=== PATIENT | female | born 1985 | race Caucasian/White ===

== ENCOUNTER 2020-06-19 14:00 | Outpatient (RCR) | payer SELFPAY ==
[2020-06-19 14:37] LABS: Basophils Percent Auto 0.2 % (0.2-1.2); Eosinophils Absolute Auto 0.1 K/mm3 (0-0.3); Eosinophils Percent Auto 0.8 % (0-4.4); Hematocrit 38.5 % (37.0-47.0); Immature Granulocyte Absolute 0.02 K/mm3 (0.00-0.031); Immature Granulocyte Percent A 0.2 % (0-0.5); Lymphocytes Absolute Auto 1.75 K/mm3 (0.9-3.2); Lymphocytes Percent Auto 18.1 % (18.3-44.2); Mean Corpuscular HGB Conc 33.8 g/dl (32-36); Mean Corpuscular Hemoglobin 28.6 pg (26-34); Mean Corpuscular Volume 84.8 fl (80-100); Mean Platelet Volume 11.2 fl (7.4-10.4); Monocytes Absolute Auto 0.6 K/mm3 (0.1-0.6); Neutrophils Absolute Auto 7.2 K/mm3 (1.3-6.7); Neutrophils Percent Auto 74.7 % (45.5-73.1); Platelet Count Result 235 k/mm3 (150-375); Red Blood Count 4.54 M/mm3 (4.2-5.4); Red Cell Distribution Width 12.7 % (11.5-14.5); White Blood Count 9.7 K/mm3 (4.5-10.0)
[2020-06-19 15:30] LABS: HIV 1/2 Ab P24 Ag Result Negative (Negative)
[2020-06-19 16:11] LABS: Hepatitis B Surface Antigen Negative (Negative); Rubella IgG Antibody 10.8 IU/ML
[2020-06-19 16:26] LABS: Hepatitis C Virus Antibody Negative (Negative)
[2020-06-22 09:13] LABS: Rapid Plasma Reagin Non-Reactive (NonReactive)
[2020-06-22] MEDS: RHO(D) IMMUNE GLOBULIN 300 MCG SYRINGE IM (17:53)
== END 2020-09-17 23:59 | disposition home or self-care (01) ==
LOC: ANHLAB 14:00
PROVIDERS: PCP Family Medicine; Visit Provider Obstetrics & Gynecology
DX: Z11.4 Encounter for screening for human immunodeficiency virus [HIV] (principal); Z29.13 Encounter for prophylactic Rho(D) immune globulin; O36.0190 Maternal care for anti-D [Rh] antibodies, unspecified trimester, not applicable or unspecified; Z3A.00 Weeks of gestation of pregnancy not specified
CPT/HCPCS: 36415; 83036; 85025; 85461; 86592; 86703; 86762; 86803; 87340; 90384; 96372; G0432; J2790

== ENCOUNTER 2020-10-27 13:28 | Outpatient (RCR) | payer BC, SELFPAY ==
[2020-10-27 14:03] LABS: Hematocrit 31.6 % (37.0-47.0); Hemoglobin 10.4 g/dL (12.0-15.0)
[2020-10-27 14:54] LABS: HIV 1/2 Ab P24 Ag Result Negative (Negative)
[2020-10-28 09:37] LABS: Rapid Plasma Reagin Non-Reactive (NonReactive)
[2020-10-29] MEDS: RHO(D) IMMUNE GLOBULIN 300 MCG/2 ML SYRINGE IM (12:20)
== END 2021-01-25 23:59 | disposition home or self-care (01) ==
LOC: ANHLAB 13:28
PROVIDERS: PCP Family Medicine; Visit Provider Obstetrics & Gynecology
DX: Z11.4 Encounter for screening for human immunodeficiency virus [HIV] (principal); Z29.13 Encounter for prophylactic Rho(D) immune globulin; O36.0190 Maternal care for anti-D [Rh] antibodies, unspecified trimester, not applicable or unspecified; Z3A.00 Weeks of gestation of pregnancy not specified
CPT/HCPCS: 36415; 85014; 85018; 85461; 86592; 86703; 90384; 96372; G0432; J2790

== ENCOUNTER 2020-12-22 13:57 | Outpatient (RCR) | payer BC, SELFPAY ==
[2020-12-04 16:05] VITALS: BP 99/71; PULSE 117
[2020-12-12 14:35] VITALS: BP 105/60; PULSE 95
[2020-12-20 12:14] VITALS: BP 123/71; PULSE 109
== END 2020-12-24 12:28 | disposition home or self-care (01) ==
LOC: ANHOBOP 13:57
PROVIDERS: PCP Family Medicine; Visit Provider Obstetrics & Gynecology
DX: O30.003 Twin pregnancy, unspecified number of placenta and unspecified number of amniotic sacs, third trimester (principal); Z3A.35 35 weeks gestation of pregnancy; Z3A.36 36 weeks gestation of pregnancy; Z3A.37 37 weeks gestation of pregnancy; O24.419 Gestational diabetes mellitus in pregnancy, unspecified control; Z3A.38 38 weeks gestation of pregnancy
CPT/HCPCS: 59025

== ENCOUNTER 2020-12-24 07:21 | Inpatient (IN) | payer BC, SELFPAY ==
[2020-12-24] VITALS (63 sets, daily range): BP systolic 92–128; BP diastolic 42–81; PULSE 66–111; RESP 15–18; TEMP 36.1–36.8; O2SAT 97–100; BMI 37.3
--- OUTSIDE RECORDS SUMMARY | 2020-12-24 07:26 | XMS_ITS ---
:1985 Author Care Team Providers Name Role Phone SerinaRobertSamchris Vega Primary Care Provider Unavailable Allergies Code Code System Name Reaction Severity Status Onset NKDA ? Medications Name Status Start Date Stop Date ? ? albuterol 90 mcg/actuation aerosol inhaler Active 04/05 Not available 2 inhalations 4 times a day by inhalation route. albuterol sulfate HFA 90 Completed ? 021 mcg/actuation aerosol inhaler amoxicillin 500 mg tablet Completed ? 2019 TK 1 T PO TID amoxicillin 875 mg-potassium Completed ? 02/2020 clavulanate 125 mg tablet FreeStyle Lancets 28 gauge Active ? Not a vailable FreeStyle Lite Meter kit Active ? Not león ilable FreeStyle Lite Strips Active ? Not availa ble hydroxyzine HCl 25 mg tablet Completed ? 02/2020 TK 1 T PO QHS Metamucil Active ? Not available metronidazole 500 mg tablet Completed ? 08/14 montelukast Completed ? 12/01/2020 montelukast 10 mg tablet Active ? Not león ilable Take 1 tablet every day by oral route. prednisone 20 mg tablet Completed ? 04/23/20 20 TK 2 TS PO QD FOR 7 DAYS One Daily 27 mg iron-800 mcg tablet Active ? Not available take 1 tablet by oral route every day Sprintec (28) 0.25 mg-35 mcg Completed 04/14/201901/2021 tablet terconazole 0.8 % vaginal Completed ? 2020
--- OUTSIDE RECORDS SUMMARY | 2020-12-24 07:27 | XMS_ITS | Encounter Summary ---
:1985 Author Reason for Visit OB visit Assessment and Plan Assessment Note Patient is ___weeks . Discu ssed plan. 1. Routine care Discussion Note: None recorded.Patient educational handouts: No information available. Plan of Care Reminders Provider Appointments Surg Post 12/30/2020 Citlali Vega Op 1:15PM MD Serina ? 3Hr on or around Jasmyn There se Glucose 02/16/2021 MD [facility] None ? ? recorded. Referral None ? ? recorded. Procedures None ? ? recorded. Surgeries None ? ? recorded. Imaging None ? ? recorded. Medications Name Start Date ? ? albuterol 90 mcg/actuation aerosol inhaler 04/05/2020 2 inhalations 4 times a day by inhalation route. FreeStyle Lancets 28 gauge ? FreeStyle Lite Meter kit ? FreeStyle Lite Strips ? Metamucil ? montelukast 10 mg tablet ? Take 1 tablet every day by oral route. One Daily 27 mg iron-800 mcg tablet ? take 1 tablet by oral route every day Medications Administered None recorded. Vitals Height Weight BMI Blood Pressure 5 ft 4 in 227 lbs 39 kg/m2 130/84 mm[Hg] Results Lab Results None recorded. Allergies
--- OUTSIDE RECORDS SUMMARY | 2020-12-24 07:27 | XMS_ITS | Encounter Summary ---
:1985 Author Reason for Visit None recorded. Assessment and Plan 1. Gestational diabetes mellitus , class A>1< ? non-stress test Discussion Note: None recorded.Patient educational handouts: No information available. Plan of Care Reminders Provider Appointments Surg Post 12/30/2020 Citlali Vega Op 1:15PM MD Serina ? 3Hr on or around Jasmyn There se Glucose 02/16/2021 MD [facility] None ? ? recorded. Referral None ? ? recorded. Procedures None ? ? recorded. Surgeries None ? ? recorded. Imaging Non-stress 12/08/2020 Uyen lentz Test Medications Name Start Date ? ? albuterol [...] every day Medications Administered None recorded. Vitals None recorded. Results Lab Results None recorded. Allergies Code Code System Name Reaction Severity Onset NKDA ? ?
--- OUTSIDE RECORDS SUMMARY | 2020-12-24 07:27 | XMS_ITS | Encounter Summary ---
:1985 Author Reason for Visit None recorded. Assessment and Plan 1. Gestational diabetes mellitus , class A>1< ? US, obstetric, follow-up ? US, obstetric, follow-up Discussion Note: None recorded.Patient educational handouts: No information available. Plan of Care Reminders Provider Appointments Surg Post 12/30/2020 Citlali Vega Op 1:15PM MD Serina ? 3Hr on or around Jasmyn There se Glucose 02/16/2021 MD [facility] None ? ? recorded. Referral None ? ? recorded. Procedures None ? ? recorded. Surgeries None ? ? recorded. Imaging US, 12/08/2020 [facility], Follow-up ? US, 12/08/2020 [facility], Follow-up Medications Name Start Date ? ? albuterol [...]
--- OUTSIDE RECORDS SUMMARY | 2020-12-24 07:27 | XMS_ITS | Encounter Summary ---
:1985 Author Reason for Visit None recorded. Assessment and Plan 1. Gestational diabetes mellitus , class A>1< Pt here for diet teaching. t teaching completed. Carb counts for meals and snacks reviewed. Pt instructed on ho w to read nutritional labels and instructed on researching carb counts for fresh fru its and vegetables. Pt provided with print outs with some fresh food carb counts an d online resources reinforced for checking fresh food serving sizes and carb counts . Pt instructed on blood sugar level goals and importance of checking blood sugar a nd keeping blood sugar log. Pt instructed on high protein low carb and provided with food recommendations. Pt instructed on 2200 calorie ADA diet and importance of regul ar meals and snacks with controlled carb amounts for a senior care stable control o f blood sugar. Pt has an appt scheduled for next week to review her BS log. Pt rolly toney understanding of information discussed. Shanti Ely RN ? non-stress test Discussion Note: None recorded.Patient educational handouts: No information available. Plan of Care Reminders Provider Appointments Surg Post 12/30/2020 Citlali Vega Op 1:15PM MD Serina ? 3Hr on or around Jasmyn There se Glucose 02/16/2021 MD [facility] None ? ? recorded. Referral None ? ? recorded. Procedures None ? ? recorded. Surgeries None ? ? recorded. Imaging Non-stress 11/24/2020 Uyen lentz
--- OUTSIDE RECORDS SUMMARY | 2020-12-24 07:27 | XMS_ITS | Encounter Summary ---
:1985 Author Reason for Visit OB visit OB [id number] EDC 01/05/2021 LMP unsure Assessment and Plan Assessment Note Patient is _34__weeks . Dis cussed plan. 1. Routine care 2. Twin 3. Seasonal allergic rhinitis ? montelukast 10 mg tablet Discussion Note: None recorded.Patient educational handouts: No [...]
--- OUTSIDE RECORDS SUMMARY | 2020-12-24 07:27 | XMS_ITS | Encounter Summary ---
[...] Surgeries None ? ? recorded. Imaging Non-stress 12/01/2020 [facility] Test Medications Name Start Date [...]
--- OUTSIDE RECORDS SUMMARY | 2020-12-24 07:27 | XMS_ITS | Encounter Summary ---
[...] snacks with controlled carb amounts for a ch[facility] stable control o f blood sugar. Pt [...] Surgeries None ? ? recorded. Imaging Non-stress 11/20/2020 Uyen lentz
--- OUTSIDE RECORDS SUMMARY | 2020-12-24 07:27 | XMS_ITS | Encounter Summary ---
:1985 Author Reason for Visit OB visit Assessment and Plan 1. Dichorionic diamniotic twin p regnancy Discussion Note: None recorded.Patient educational handouts: No [...] BMI Blood Pressure 5 ft 4 in 218 lbs 37.4 kg/m2 121/78 mm[Hg] Results Lab Results None recorded. Allergies Code Code System Name Reaction Severity Onset
--- OUTSIDE RECORDS SUMMARY | 2020-12-24 07:27 | XMS_ITS | Encounter Summary ---
[...] snacks with controlled carb amounts for a fdc stable control o f blood sugar. Pt [...] Surgeries None ? ? recorded. Imaging Non-stress 11/27/2020 Uyen lentz
--- OUTSIDE RECORDS SUMMARY | 2020-12-24 07:27 | XMS_ITS | Encounter Summary ---
:1985 Author Reason for Visit None recorded. Assessment and Plan 1. condition affecting obs tetrical care of mother ? US, obstetric, biophysical profile + non-stress test Discussion Note: None recorded.Patient educational handouts: No information available. Plan of Care Reminders Provider Appointments Surg Post Op 12/30/2020 Ro omar Vega 1:15PM MD Serina ? 3Hr Glucose on or around Jasmyn Jeannette 02/16/2021 MD [facility] None ? ? recorded. Referral None ? ? recorded. Procedures None ? ? recorded. Surgeries None ? ? recorded. Imaging US, 11/24/2020 [facility], Biophysical Profile + Non-stress Test Medications Name Start Date ? ? [...] recorded. Results Lab Results None recorded. Allergies C
--- OUTSIDE RECORDS SUMMARY | 2020-12-24 07:27 | XMS_ITS | Encounter Summary ---
:1985 Author Reason for Visit None recorded. Assessment and Plan 1. Abnormal heart rate ? US, obstetric, biophysical profile + non-stress test Discussion Note: None recorded.Patient educational handouts: No information available. Plan of Care Reminders Provider Appointments Surg Post Op 12/30/2020 Afia Vega 1:15PM MD Serina ? 3Hr Glucose on or around Jasmyn Jeannette 02/16/2021 [facility] None ? ? recorded. Referral None ? ? recorded. Procedures None ? ? recorded. Surgeries None ? ? recorded. Imaging US, 11/20/2020 [facility], Biophysical Profile + Non-stress Test Medications [...]
--- OUTSIDE RECORDS SUMMARY | 2020-12-24 07:27 | XMS_ITS | Encounter Summary ---
[...] BMI Blood Pressure 5 ft 4 in 217 lbs 37.2 kg/m2 113/80 mm[Hg] Results Lab Results None recorded. Allergies Code Code System Name Reaction Severity Onset
--- OUTSIDE RECORDS SUMMARY | 2020-12-24 07:28 | XMS_ITS | Encounter Summary ---
:1985 Author Reason for Visit OB visit OB [id number] EDC 01/05/2021 LMP unsure Assessment and Plan 1. Routine care 2. section following pr evious section ? section (SURG) Discussion Note: None recorded.Patient educational handouts: No information available. Plan of Care Reminders Provider Appointments Surg Post 12/30/2020 Citlali Vega Op 1:15PM MD Serina ? 3Hr Glucose on or around Jasmyn Jeannette 02/16/2021 [facility] None ? ? recorded. Referral None ? ? recorded. Procedures None ? ? recorded. Surgeries 11/17/2020 [facility] (SURG) [facility] None ? ? recorded. Medications Name [...]
--- OUTSIDE RECORDS SUMMARY | 2020-12-24 07:28 | XMS_ITS ---
:1985 Author Care Team Providers Name Role Phone [facility] Primary Care Provider Unavailable Allergies None recorded. Medications None recorded. Problems None recorded. Procedures None recorded. Results Lab Results Date Name Specimen Result Interpretation Description Value Range Status Address ? 03/04/2020 SARS CoV 2 RNA CRITICAL Sars - positive* ? [facility] (COVID-19), ABNORMAL Cov - 2 mL Re gional QL, nurse leader-PCR, PCR (Lab ): [address], [place] ? ? ? Covidc ? ? [facility] (Lab): [address], [place] ? ? ? Covidc ? ? [facility] (Lab): [address], [place] ? ? ? Covidc ? ? [facility] (Lab): [address], [place] ? ? ? Covidc ? ? [facility] (Lab): [address],
--- OUTSIDE RECORDS SUMMARY | 2020-12-24 07:28 | XMS_ITS | Encounter Summary ---
[...] snacks with controlled carb amounts for a care home stable control o f blood sugar. Pt [...] Surgeries None ? ? recorded. Imaging Non-stress 11/13/2020 Uy[facility] lentz
--- OUTSIDE RECORDS SUMMARY | 2020-12-24 07:28 | XMS_ITS | Encounter Summary ---
[...] snacks with controlled carb amounts for a intermediate stable control o f blood sugar. Pt [...] Surgeries None ? ? recorded. Imaging Non-stress 11/10/2020 Uyen lentz
--- OUTSIDE RECORDS SUMMARY | 2020-12-24 07:28 | XMS_ITS | Encounter Summary ---
:1985 Author Reason for Visit OB visit 28weeks Assessment and Plan 1. Twin 2. Routine care Discussion Note: None recorded.Patient educational [...] BMI Blood Pressure 5 ft 4 in 219 lbs 37.6 kg/m2 113/76 mm[Hg] Results Lab Results None recorded. Allergies Code Code System Name
--- OUTSIDE RECORDS SUMMARY | 2020-12-24 07:28 | XMS_ITS | Encounter Summary ---
[...] ft 4 in 218 lbs 37.4 kg/m2 112/75 mm[Hg] Results Lab Results None recorded. Allergies Code Code System Name Reaction Severity Onset
--- OUTSIDE RECORDS SUMMARY | 2020-12-24 07:28 | XMS_ITS | Encounter Summary ---
[...] snacks with controlled carb amounts for a nursing home stable control o f blood sugar. [...] Surgeries None ? ? recorded. Imaging Non-stress 11/17/2020 Uyen lentz
--- OUTSIDE RECORDS SUMMARY | 2020-12-24 07:28 | XMS_ITS | Encounter Summary ---
[...] with controlled carb amounts for a senior living stable control o f blood sugar. Pt has an appt scheduled for next week to review her BS log. Pt rolly toney understanding of information discussed. Shanti Ely RN Discussion Note: None recorded.Patient educational handouts: No [...]
--- OUTSIDE RECORDS SUMMARY | 2020-12-24 07:28 | XMS_ITS | Encounter Summary ---
:1985 Author Reason for Visit OB visit 32wks Assessment and Plan 1. Routine care Discussion Note: None recorded.Patient [...] ft 4 in 218 lbs 37.4 kg/m2 133/82 mm[Hg] Results Lab Results None recorded. Allergies Code Code System Name Reaction Severity Onset
--- OUTSIDE RECORDS SUMMARY | 2020-12-24 07:28 | XMS_ITS | Encounter Summary ---
:1985 Author Reason for Visit None recorded. Assessment and Plan 1. Dichorionic diamniotic twin p regnancy ? US, obstetric, follow-up ? US, obstetric, [...] Surgeries None ? ? recorded. Imaging US, 10/13/2020 [facility], Follow-up ? , 10/13/2020 [facility], Follow-up Medications Name Start Date ? [...] Medications Administered None recorded. Vitals None recorded. Re
--- OUTSIDE RECORDS SUMMARY | 2020-12-24 07:28 | XMS_ITS | Encounter Summary ---
[...] Surgeries None ? ? recorded. Imaging US, 11/10/2020 [facility], Follow-up ? , 11/10/2020 [facility], Follow-up Medications Name Start Date ? [...]
[2020-12-24 07:55] LABS: Glucose Point of Care 59 mg/dl (65-105)
[2020-12-24] MEDS: LACTATED RINGERS 1,000 ML 125 ML IV CONT ×2 (08:00→11:08)
[2020-12-24 08:12] LABS: Basophils Absolute Auto 0.1 K/mm3 (0.0-0.1); Basophils Percent Auto 0.5 % (0.2-1.2); Eosinophils Absolute Auto 0.1 K/mm3 (0-0.3); Eosinophils Percent Auto 1.2 % (0-4.4); Hematocrit 33.6 % (37.0-47.0); Immature Granulocyte Absolute 0.06 K/mm3 (0.00-0.031); Immature Granulocyte Percent A 0.6 % (0-0.5); Lymphocytes Absolute Auto 1.89 K/mm3 (0.9-3.2); Lymphocytes Percent Auto 18.5 % (18.3-44.2); Mean Corpuscular HGB Conc 32.7 g/dl (32-36); Mean Corpuscular Volume 82.6 fl (80-100); Monocytes Absolute Auto 0.8 K/mm3 (0.1-0.6); Monocytes Percent Auto 7.5 % (2.6-8.5); Neutrophils Absolute Auto 7.3 K/mm3 (1.3-6.7); Neutrophils Percent Auto 71.7 % (45.5-73.1); Platelet Count Result 162 k/mm3 (150-375); Red Blood Count 4.07 M/mm3 (4.2-5.4); White Blood Count 10.2 K/mm3 (4.5-10.0)
--- NOTE | 2020-12-24 08:18 | LDADM ---
This patient, Iraida Cooley, was admitted to Labor/Delivery/Recovery 120 on 12/24/20 at 07:21. Plans for scheduled section, pain management and were discussed with patient. Patient/family oriented to hospital policies and general routines including ID bracelet, bed and alarms, visiting hours, pain management, procedures, bathroom and other care routines, personal items, smoking policy, room service/diet and guest tray routines, infant security routines, and visiting hours. Patient/Family are encouraged to report perceived risks to care and to ask questions if they do not understand what they are told or what they should do. See OBIX for further documentation.
--- NOTE | 2020-12-24 08:38 | WPDANESEPPF ---
Anes - Initial Pre Proc Eval Procedure: Operation Date: 12/24/20 09:00 Proposed Procedures p Repeat Section - Raghu Smalls MD Date/Time: 12/24/20 08:38 Surgeon: Raghu Smalls MD Pre Op Diagnosis: c/s twins Patient Data Age: 35 Gender: F Height: 1.63 m Weight: 98.63 kg Last Vital Signs Pulse 111 H 12/24/20 07:47 BP 128/77 12/24/20 07:47 Allergies Allergy/AdvReac Type Severity Reaction Status Date / Time No Known Allergies Allergy Unverified 07/15/14 13:40 Laboratory Tests 12/24/20 12/24/20 12/24/20 07:53 07:56 07:56 WBC 10.2 K/mm3 H K/mm3 (4.5-10.0) RBC 4.07 M/mm3 L M/mm3 (4.2-5.4) Hgb 11.0 g/dL L g/dL (12.0-15.0) Hct 33.6 % L % (37.0-47.0) MCV 82.6 fl fl (80-100) MCH 27.0 pg pg (26-34) MCHC 32.7 g/dl g/dl (32-36) RDW 14.0 % % (11.5-14.5) Plt Count 162 k/mm3 k/mm3 (150-375) MPV 12.0 fl H fl (7.4-10.4) Immature Gran % (Auto) 0.6 % H % (0-0.5) Neut % (Auto) 71.7 % % (45.5-73.1) Lymph % (Auto) 18.5 % % (18.3-44.2) Amelia % (Auto) 7.5 % % (2.6-8.5) Eos % (Auto) 1.2 % % (0-4.4) Baso % (Auto) 0.5 % % (0.2-1.2) Lymph # (Auto) 1.89 K/mm3 K/mm3 (0.9-3.2) Amelia # (Auto) 0.8 K/mm3 H K/mm3 (0.1-0.6) Eos # (Auto) 0.1 K/mm3 K/mm3 (0-0.3) Baso # (Auto) 0.1 K/mm3 K/mm3 (0.0-0.1) Abs Immat Gran (auto) 0.06 K/mm3 H K/mm3 (0.00-0.031) Absolute Neuts (auto) 7.3 K/mm3 H K/mm3 (1.3-6.7) Absolute Nucleated RBC 0.0 K/mm3 K/mm3 (0.0-0.012) Nucleated RBC % 0.0 % % (0.0-0.2) POC Capillary Glucose 59 mg/dl L* mg/dl (65-105) RPR Pending Patient hx anesthesia problems: none Family hx anesthesia problems: none PMFSH Social History Social History Smoking status: Never smoker Substance use: never Sexual Orientation (if Verbalized by the Patient): Straight or Heterosexual Spiritual care concerns: No Anes - Eval Final PreProcedure Day of Procedure 12/24/20 08:38 Patient weight: obese Heart: regular rate and rhythm Lungs: clear to auscultation Airway: Mallampati scale class II Neurological: alert and oriented Last oral intake: >/= 8 hours ASA classification: II Emergent: no Anesthetic plan: proceed Anesthesia type and monitoring: regional spinal and standard monitoring Informed Consent: The patient's anesthetic plan and its attendant risks and benefits were discussed with the patient/family/POA. Questions were solicited and answers provided to the satisfaction of the patient/family/POA.
--- NOTE | 2020-12-24 08:58 | PM.IMHP ---
H&P: HPI History of Present Illness Date/Time: 12/24/20 08:58 this patient is a 35-year-old 2 para 1001 at 38 weeks gestation with dichorionic diamniotic twins. We have agreed to proceed with delivery. She understands the risks and understands that injuries may occur. She understands these injuries may result in hospitalization, more surgery, and severe illness. She understands risk of hemorrhage infection. She denies any chest pain or shortness of breath. She denies any nausea, vomiting, fever, chills. She denies any contractions, loss of fluid or vaginal bleeding. Chief Complaint: Term gestation with twins Review of Systems Constitutional: Constitutional: Reports no additional constitutional complaints, Denies fatigue, Denies headache(s), Denies lethargy and Denies weakness Eyes: Eyes: Reports no additional eye complaints, Denies blurry vision and Denies photophobia ENT: Reports as per HPI, Denies headache(s) and Denies neck pain Cardiovascular: Cardiovascular: Denies chest pain, Denies diaphoresis, Denies leg edema, Denies palpitations and Denies dyspnea Respiratory: Respiratory: Denies hemoptysis, Denies dyspnea and Denies wheezing Gastrointestinal: Gastrointestinal: Denies abdominal pain, Denies melena, Denies bloating, Denies hematochezia, Denies nausea and Denies vomiting Genitourinary: Genitourinary: Reports no additional female genitourinary complaints Musculoskeletal: Musculoskeletal: Denies joint swelling, Denies neck pain, Denies numbness and Denies stiffness Neurologic: Denies Abnormal speech present, Denies confusion, Denies headache(s), Denies numbness and Denies weakness Psychiatric: Psychiatric: Denies anxiety, Denies confusion, Denies depression, Denies homicidal ideation and Denies suicidal ideation Endocrine: Endocrine: Denies fatigue and Denies palpitations Allergic/Immunologic: Allergic/Immunologic: Denies wheezing PMFSH Social History Social History Smoking status: Never smoker Substance use: never Sexual Orientation (if Verbalized by the Patient): Straight or Heterosexual Spiritual care concerns: No Meds Home Medications and Allergies Allergies Allergy/AdvReac Type Severity Reaction Status Date / Time No Known Allergies Allergy Unverified 07/15/14 13:40 Vital Signs Vital Signs - 24 hr 12/24/20 07:47 Pulse Rate 111 H Blood Pressure 128/77 Exam Const: General: healthy appearing, comfortable and no acute distress; No confusion Orientation/consciousness: No confusion Eyes: Direct Ophthalmoscopy: No photophobia Resp: Auscultation: clear to auscultation bilaterally, no rales, no rhonchi and no wheezes Cardio: Rate: regular rate Heart sounds: no click, no murmurs and no rubs GI: Inspection: non-distended GI Palp: No abdominal tenderness Auscultation: normal bowel sounds Neuro: General: No confusion Speech: No Abnormal speech present Extrem: General: normal to inspection, no pedal edema and no calf tenderness H&P: Results Labs Labs: Short CBC 12/24/20 Range/Units 07:56 WBC 10.2 H (4.5-10.0) K/mm3 Hgb 11.0 L (12.0-15.0) g/dL Hct 33.6 L (37.0-47.0) % Plt Count 162 (150-375) k/mm3 Assessment and Plan Assessment and plan (1) Twin gestation in third trimester: Code(s): O30.003 - Twin , unspecified number of placenta and unspecified number of amniotic sacs, third trimester Status: Acute Additional Plan this patient is a 35-year-old 2 para 1001 at 38 weeks gestation with a twin gestation. We have agreed to perform delivery. She understands risks, benefits, and alternatives. She has completed the informed consent process and is ready to proceed.
--- NOTE | 2020-12-24 10:23 | W.PM.PROC2 ---
Procedure Note - Detailed Date of Procedure 12/24/20 Pre-op Diagnosis c/s twins Post-op Diagnosis same Procedure Performed Low-transverse section of Twins Surgeon Raghu Smalls MD Anesthesia spinal Indications twin gestation Findings Normal gestational maternal anatomy, average size for gestational age and twins, normal Apgars. Description of Procedure The patient was taken the operating room. She was prepped and draped in dorsal supine position with a leftward tilt. This was done after spinal anesthetic was applied. A low-transverse skin incision was made and carried down till of the fascia with the knife. The fascial incision was made with the knife. The fascial incision was extended laterally with [place] scissors. The fascia was tented upward superiorly and inferiorly the rectus muscles were dissected off bluntly. The rectus muscles were the midline. The preperitoneal fat and peritoneum were dissected open bluntly at the superior aspect of the rectus muscles. The peritoneal incision was extended superior and inferior with good position of bladder. The uterine incision was made with a scalpel down to the level of the amniotic cavity. The amniotic cavity was entered bluntly. The infant A was delivered in the vertex position.Infant B was delivered breech, first the left leg and the right was then reduced. the rest came easily. The cord was clamped and cut and the infants were handed off to waiting pediatric staff. Cord bloods were obtained. The placenta was removed manually. The uterus was exteriorized. The uterus was cleared of all clots, debris and membranes. The uterus was closed in 0 Vicryl running lock fashion. An imbricating over a was placed along the incision line as well. The uterus was returned to the abdomen. The gutters were cleared of all clots and debris. The fascia was closed with 0 Vicryl running fashion. The subcutaneous tissue was irrigated pinpoint bleeders were cauterized. The skin was closed with subcuticular absorbable mohsen. The skin incision line was covered with glue. The patient tolerated the procedure well. She has taken recovery room in stable condition. Sponge lap and needle counts were correct x2. Estimated Blood Loss 230 Drains No Packing No Pathology yes Complications No immediate complications Condition stable Disposition PACU
[2020-12-24 10:35] LABS: Glucose Point of Care 89 mg/dl (65-105)
[2020-12-24] MEDS: OXYTOCIN 30 UNITS/NS 500 ML 30 UNITS/500 ML BAG 125 UNITS IV CONT (11:09)
--- NOTE | 2020-12-24 13:30 | PC.NURSE ---
Patient transferred to post room #292 per stretcher from labor and delivery. Support person present. Oriented to unit, room, information board, rooming in, admission packet and security measures. Patient verbalizes understanding.
[2020-12-24] MEDS: diphenhydrAMINE HCl INJ 50 MG/ML VIAL 25 MG IV PUSH (13:48)
--- NOTE | 2020-12-24 13:50 | PC.NURSE ---
Mother called out for assist with feeding. Mother reports infant eagerly fed last feeding. Other twin is currently in Level II. is able to freely thrust tongue past gum ridge and flange both lips. Skin is intact on both nipples, no redness and bruising noted. Discussed both infants will have their own abilities: suck and feeding patterns that may not match. Some mothers prefer to breastfeed separately to give each infant her full individualized attention during to assist with effective latching. Keeping infants on a feeding schedule may be difficult, but it is suggested to feed infants in sequence to allow rest time for mother between feedings. Different approaches to switching infants to breast by feeding or day. Reviewed feeding cues, frequencies, duration of feedings, feeding elimination flow sheet, and signs of adequate intake. Demonstrated stimulation techniques to wake for feeding. Assisted with infant to breast. Reviewed positioning/alignment in cross cradle, holding breast in ?U? hold and guided asymmetrical latch on. Discussed rational for each. able to latch correctly. Reviewed signs of a correct latch, effective nursing and suck swallow ratio. nursed eagerly, with steady draws and frequent swallowing noted. Reviewed the difference of effective vs ineffective nursing. Suggested mother stimulate while feeding to increase stimulation, increase intake and to assist with maintaining deep latch. would slip to shallow latch. Demonstrated how to adjust latch more deeply while feeding. Nipple care reviewed of lanolin after feedings, warm compresses as needed. Mother preferred cradle and switched once was latched.
[2020-12-24] MEDS: DEXTROSE 5%/0.45% SOD CHL 1,000 ML 125 ML IV CONT (16:40)
[2020-12-24] MEDS: SIMETHICONE 80 MG TAB.CHEW PO (22:57)
[2020-12-24] MEDS: HYDROcodone/acetaminophen (*CRX) 5-325 MG TABLET 1 TAB PO (22:58)
[2020-12-24] MEDS: IBUPROFEN 600 MG TABLET PO (22:58)
--- NOTE | 2020-12-25 01:10 | PC.NURSE ---
To Level II Nursery per wheelchair to see .
--- NOTE | 2020-12-25 02:30 | PC.NURSE ---
Returned to room 292 per wheelchair. Ambulatory in room, up to bathroom. Gait steady.
[2020-12-25 03:45] VITALS: BP 112/63; PULSE 81; RESP 18; TEMP 37.1
[2020-12-25] MEDS: TETANUS,DIPHTHERIA,AC PERTUSSIS ADULT (0.5 ML) BOOSTRIX IM (03:59)
[2020-12-25] MEDS: LANOLIN (LANSINOH) 7.5 GM CREAM 1 APPLIC TOPICAL (04:04)
[2020-12-25] MEDS: HYDROcodone/acetaminophen (*CRX) 5-325 MG TABLET 1 TAB PO ×6 (05:02→23:51)
[2020-12-25] MEDS: IBUPROFEN 600 MG TABLET PO ×3 (05:03→19:51)
[2020-12-25 05:19] LABS: Basophils Percent Auto 0.3 % (0.2-1.2); Eosinophils Absolute Auto 0.1 K/mm3 (0-0.3); Eosinophils Percent Auto 0.8 % (0-4.4); Hematocrit 31.6 % (37.0-47.0); Hemoglobin 10.3 g/dL (12.0-15.0); Immature Granulocyte Absolute 0.06 K/mm3 (0.00-0.031); Immature Granulocyte Percent A 0.5 % (0-0.5); Lymphocytes Absolute Auto 1.65 K/mm3 (0.9-3.2); Lymphocytes Percent Auto 12.7 % (18.3-44.2); Mean Corpuscular HGB Conc 32.6 g/dl (32-36); Mean Corpuscular Volume 82.7 fl (80-100); Mean Platelet Volume 12.6 fl (7.4-10.4); Monocytes Absolute Auto 0.9 K/mm3 (0.1-0.6); Monocytes Percent Auto 7.1 % (2.6-8.5); Neutrophils Absolute Auto 10.2 K/mm3 (1.3-6.7); Neutrophils Percent Auto 78.6 % (45.5-73.1); Platelet Count Result 148 k/mm3 (150-375); Red Blood Count 3.82 M/mm3 (4.2-5.4); Red Cell Distribution Width 13.9 % (11.5-14.5)
[2020-12-25 07:30] VITALS: BP 89/49; PULSE 78; RESP 18; TEMP 37.2; O2SAT 98
--- NOTE | 2020-12-25 08:38 | P.PNOB_ITS ---
OB - PN: Subj Subjective Date/time seen: 12/25/20 08:38 Patient comments: no complaints baby status: doing well OB - PN: Obj Data Labs CBC & Chem 7: 12/25/20 03:56 Labs: Laboratory Results - last 24 hr 12/24/20 12/24/20 12/25/20 07:56 10:33 03:56 WBC RBC Hgb Hct MCV MCH MCHC RDW Plt Count MPV Immature Gran % (Auto) Neut % (Auto) Lymph % (Auto) Grimes % (Auto) Eos % (Auto) Baso % (Auto) Lymph # (Auto) [place]imes # (Auto) Eos # (Auto) Baso # (Auto) Abs Immat Gran (auto) Absolute Neuts (auto) Absolute Nucleated RBC Nucleated RBC % POC Capillary Glucose 89 Blood Type A Negative A Negative Antibody Screen Negative Negative 12/25/20 03:56 WBC 13.0 H RBC 3.82 L Hgb 10.3 L Hct 31.6 L MCV 82.7 MCH 27.0 MCHC 32.6 RDW 13.9 Plt Count 148 L MPV 12.6 H Immature Gran % (Auto) 0.5 Neut % (Auto) 78.6 H Lymph % (Auto) 12.7 L Grimes % (Auto) 7.1 Eos % (Auto) 0.8 Baso % (Auto) 0.3 Lymph # (Auto) 1.65 Grimes # (Auto) 0.9 H Eos # (Auto) 0.1 Baso # (Auto) 0.0 Abs Immat Gran (auto) 0.06 H Absolute Neuts (auto) 10.2 H Absolute Nucleated RBC 0.0 Nucleated RBC % 0.0 POC Capillary Glucose Blood Type Antibody Screen OB - PN A/P Plan day: 1 Plan: routine care Time Spent With Patient Time: Total time spent is greater than 50% in coordination of care (as documented) at patient's floor/unit and/or counseling patient: Review of Systems Review of Systems: All systems reviewed & are unremarkable except as noted in HPI and below Exam Narrative: CDI Const: General: cooperative Psych: Affect: normal affect Thought process: Normal thought process present Insight: Good insight present (Psych)
[2020-12-25 09:00] VITALS: PULSE 78; RESP 18; O2SAT 98
[2020-12-25] MEDS: MULTIVIT/MIN/PREN/FOL AC/IRON TABLET 1 TAB PO (09:30)
[2020-12-25] MEDS: DOCUSATE SODIUM 100 MG CAPSULE PO ×2 (09:30→17:17)
[2020-12-25 13:13] LABS: Rapid Plasma Reagin Non-Reactive (NonReactive)
[2020-12-25] MEDS: SIMETHICONE 80 MG TAB.CHEW PO ×3 (13:36→23:51)
--- NOTE | 2020-12-25 15:19 | WPDANLDNPN2 ---
Anes-Prog Note L&D-Neuraxial Date/Time: 12/25/20 15:19 Neuraxial medications: intrathecal PF morphine Opiod-related complaints: none Patient feedback: Patient satisfied with post-operative pain management.
--- NOTE | 2020-12-25 15:20 | WPDANLDPN2 ---
Anes-Prog Note L&D Date/Time: 12/25/20 15:20 Comfortable throughout: section Neuraxial method: spinal Epidural/Spinal procedure site: clean & non-tender Neuro status: Neuro function grossly intact. Cardiovascular status: normal Respiratory status: normal Airway patency: baseline Mental status: baseline Post-Op hydration status: normal Vital Signs: Last Vital Signs Temp 37.2 C 12/25/20 07:30 Pulse 78 12/25/20 07:30 Resp 18 12/25/20 07:30 BP 89/49 L 12/25/20 07:30 Pulse Ox 98 12/25/20 07:30 Pain score (VAS): 05/24 I/O: Intake & Output 12/24/20 12/25/20 12/25/20 23:59 07:59 15:59 Intake Total 1920 1800 240 Output Total 600 2200 Balance 1320 -400 240 Post-procedural complaints: none Patient feedback: Patient satisfied with anesthetic care.
[2020-12-25] MEDS: RHO(D) IMMUNE GLOBULIN 300 MCG/2 ML SYRINGE IM (17:43)
[2020-12-25 19:28] VITALS: BP 102/61; PULSE 81; RESP 16; TEMP 36.4; O2SAT 98
[2020-12-26] MEDS: SIMETHICONE 80 MG TAB.CHEW PO ×3 (05:58→19:03)
[2020-12-26] MEDS: IBUPROFEN 600 MG TABLET PO ×2 (05:58→16:30)
[2020-12-26] MEDS: HYDROcodone/acetaminophen (*CRX) 5-325 MG TABLET 1 TAB PO ×4 (05:58→19:03)
[2020-12-26 07:00] VITALS: BP 111/63; PULSE 81; RESP 16; TEMP 36.6; O2SAT 98
--- NOTE | 2020-12-26 08:42 | PM.OBPNVD ---
OB - PN: Subj Subjective Date/time seen: 12/26/20 08:42 Patient comments: no complaints and pain well controlled baby status: bottle feeding well Narrative: Eating, ambulating, voiding. No concerns. OB - PN: Obj Data Labs CBC & Chem 7: 12/25/20 03:56 Labs: Laboratory Results - last 24 hr 12/24/20 12/25/20 07:56 03:56 RPR Non-reactive Blood Type A Negative Antibody Screen Negative Screen Negative Baby's Blood Type O pos Baby's GURINDER Negative Doses of RhIg Required 1 OB - PN A/P Plan day: 2 Comments: Routine post op care. Time Spent With Patient Time: Total time spent is greater than 50% in coordination of care (as documented) at patient's floor/unit and/or counseling patient: Exam Narrative: NAD abdomen soft, appropriately tender, incision CDI Extremities nontender with 1+ edema
[2020-12-26 09:00] VITALS: PULSE 81; RESP 16; O2SAT 98
[2020-12-26] MEDS: MULTIVIT/MIN/PREN/FOL AC/IRON TABLET 1 TAB PO (09:29)
[2020-12-26] MEDS: DOCUSATE SODIUM 100 MG CAPSULE PO ×2 (09:29→16:30)
[2020-12-26 19:00] VITALS: BP 124/80; PULSE 76; RESP 16; TEMP 36.7; O2SAT 99
[2020-12-27] MEDS: IBUPROFEN 600 MG TABLET PO ×2 (01:48→08:08)
[2020-12-27] MEDS: SIMETHICONE 80 MG TAB.CHEW PO ×2 (01:49→08:08)
[2020-12-27] MEDS: HYDROcodone/acetaminophen (*CRX) 5-325 MG TABLET 1 TAB PO ×2 (01:49→08:09)
[2020-12-27] MEDS: DOCUSATE SODIUM 100 MG CAPSULE PO (08:08)
[2020-12-27] MEDS: MULTIVIT/MIN/PREN/FOL AC/IRON TABLET 1 TAB PO (08:08)
[2020-12-27 08:15] VITALS: BP 133/72; PULSE 91; RESP 16; TEMP 36.3; O2SAT 100
--- NOTE | 2020-12-27 08:32 | PC.NURSE ---
Patient viewed the discharge video Mother & Baby Care, The First Two Weeks . Patient was given the opportunity and encouraged to ask questions. Patient verbalized understanding of information shared and has been given the mother/baby guide for home reference.
--- NOTE | 2020-12-27 08:49 | PM.OBPNVD ---
OB - PN: Subj Subjective Date/time seen: 12/27/20 08:49 Patient comments: no complaints and pain well controlled baby status: doing well and bottle feeding well OB - PN: Obj Data Labs CBC & Chem 7: 12/25/20 03:56 OB - PN A/P Plan day: 3 Plan: routine care and discharge home Time Spent With Patient Time: Total time spent is greater than 50% in coordination of care (as documented) at patient's floor/unit and/or counseling patient: Exam Narrative: NAD abdomen soft, appropriately tender, incision CDI Extremities nontender with 1+ edema
--- NOTE | 2020-12-27 08:55 | P.DS_ITS ---
DS: Admitting Diagnosis Admitting Diagnosis twin IUP at term DS: Discharge Diagnosis Discharge Diagnosis (1) delivery delivered: Code(s): O82 - Encounter for delivery without indication Status: Acute (2) Twin gestation in third trimester: Code(s): O30.003 - Twin , unspecified number of placenta and unspecified number of amniotic sacs, third trimester Status: Acute OB - DS: Summary OB Procedures : NST and Ultrasound OB Procedures Intrapartum: OB Procedures: : None Peripartum Data Delivery Method: Section Procedures: Procedures Operation Date: 12/24/20 09:00 Actual Procedure Side Surgeon p Repeat Section Raghu Smalls MD complications: none Status at Discharge Functional status at discharge: independent ambulation Time Spent with Patient Time attestation: Total time spent providing and/or coordinating discharge ser vices: Time spent: Less than 30 minutes Exam Narrative: NAD abdomen soft, appropriately tender, incision CDI DS: Data Data Completed and Pending Pending studies at discharge: Pending at discharge 12/24/20 10:51 Surgical [PTH] Routine Discharge Plan Discharge Attending physician on discharge: Jasmyn Gallegos Discharging Clinician: Jasmyn Gallegos Anticipated Discharge Date/Time: 12/27/20 12:00 Patient Disposition: Home, Self-Care Activity: may shower, may drive after 2 weeks and pelvic rest Diet: as tolerated Patient Instructions: Antibiotic Form Stand Alone Forms: General Discharge Information Follow-up/Referrals: Raghu Smalls MD [Physician] - 1 Week Discharge Medications: New hydrocodone-acetaminophen 5-325 mg tablet 1 tablet PO Q4-6H PRN (Reason: Moderate Pain (4-6)) Qty: 30 RF: 0 ibuprofen 600 mg Tablet 600 mg PO Q6H PRN (Reason: Cramping) Qty: 60 RF: 1 docusate sodium 100 mg Capsule 100 mg PO BID Qty: 60 RF: 1 Continued montelukast 10 mg tablet See Rx Instructions .ROUTE .COMPLEX RF: 0 Date of admission: 12/24/20 07:21 Primary Care Provider: Elizabeth Pinzon Admitting Provider: Raghu Smalls Attending physician on admission: Raghu Smalls Condition: Stable
[2020-12-30 11:55] VITALS: BP 133/76; PULSE 73; RESP 20; TEMP 37.1; O2SAT 99
== END 2020-12-27 13:25 | disposition home or self-care (01) | DRG 788 ==
LOC: ANHOB2 12-27 08:55 → ANHLDR 12-28 15:44 → ANHOB2 12-28 15:44
PROVIDERS: Admitting Provider Obstetrics & Gynecology; PCP Family Medicine; Visit Provider Obstetrics & Gynecology
PROC: 10D00Z1 Extraction of Products of Conception, Low, Open Approach (ICD-10-PCS; CPT 59514; principal; 2020-12-24 09:00)
DX: O30.043 Twin pregnancy, dichorionic/diamniotic, third trimester (principal); Z37.2 Twins, both liveborn; Z3A.38 38 weeks gestation of pregnancy; O34.211 Maternal care for low transverse scar from previous cesarean delivery; O32.1XX2 Maternal care for breech presentation, fetus 2; O24.429 Gestational diabetes mellitus in childbirth, unspecified control; O99.214 Obesity complicating childbirth; E66.9 Obesity, unspecified
CPT/HCPCS: 36415; 59025; 82948; 85025; 85461; 86592; 86850; 86900; 86901; 88307; 90384; 90715; A9270; J0131; J1200; J2274; J2590; J2790; J7120

== ENCOUNTER 2022-07-18 14:55 | Emergency (ER) | payer SELFPAY ==
[2022-07-18 15:03] VITALS: BP 124/79; PULSE 80; RESP 16; TEMP 36.7; O2SAT 100
--- NOTE | 2022-07-18 15:46 | ED_ITS ---
HPI - Skin/Abscess/Foreign Bdy General Chief complaint: Upper Respiratory Infection Stated complaint: sore throat Time Seen by Provider: 07/18/22 15:40 Source: patient, RN notes reviewed and old records reviewed Mode of arrival: ambulatory Limitations: no limitations Related Data Home Medications Medication Instructions Recorded Confirmed montelukast 10 mg tablet See Rx Instructions .Route .COMPLEX 12/24/20 12/24/20 Allergies Allergy/AdvReac Type Severity Reaction Status Date / Time No Known Allergies Allergy Unverified 03/26/21 09:17 PMFSH Surgical History Surgical History [place] teeth extracted Social History Social History Smoking status: Never smoker Substance use: never Sexual Orientation (if Verbalized by the Patient): Straight or Heterosexual Spiritual care concerns: No Course Vital Signs Vital signs: Vital Signs Temperature 36.7 C 07/18/22 15:03 Pulse Rate 80 07/18/22 15:03 Respiratory Rate 16 07/18/22 15:03 Blood Pressure 124/79 07/18/22 15:03 Pulse Oximetry 100 07/18/22 15:03 Oxygen Delivery Room Air 07/18/22 15:03 Temperature 36.7 C 07/18/22 15:03 Pulse Rate 80 07/18/22 15:03 Respiratory Rate 16 07/18/22 15:03 Blood Pressure 124/79 07/18/22 15:03 Pulse Oximetry 100 07/18/22 15:03 Oxygen Delivery Room Air 07/18/22 15:03 MDM - Skin/Abscess/Foreign Bdy Lab Data Labs: Strep Screen Presumptive Negative *(Reference Range: Negative)* Discharge Plan Discharge Clinical Impression: Upper respiratory infection Qualifiers: URI type: unspecified URI Qualified Code(s): J06.9 - Acute upper respiratory infection, unspecified Patient Disposition: Home, Self-Care Condition: Stable Instructions: Antibiotic Form Additional Instructions: Increase fluids especially juices and water Fzcu-nod-tsinifl cough and cold medicine of your choice for your symptoms Zyrtec Claritin or Samantha daily heat to the face 20-30 minutes 4-6 times a day for pain Salt water gargles, throat lozenges or throat sprays as desired Tylenol or ibuprofen for any fever pain Your strep test today was negative. A throat culture will be sent to the laboratory for further testing. IF the test is positive, you will receive a phone call within 48 hours and an appropriate antibiotic will be initiated at that time. Prescriptions: No Action montelukast 10 mg tablet See Rx Instructions .ROUTE .COMPLEX Rx Instructions: take once a day docusate sodium 100 mg Capsule 100 mg PO BID Qty: 60 1RF hydrocodone-acetaminophen 5-325 mg tablet 1 tablet PO Q4-6H PRN (Reason: Moderate Pain (4-6)) Qty: 30 0RF ibuprofen 600 mg Tablet 600 mg PO Q6H PRN (Reason: Cramping) Qty: 60 1RF Follow-up/Referrals: UNKNOWN,DOCTOR [Primary Care Provider] -
--- NOTE | 2022-07-18 15:48 | ED.URI ---
HPI - URI/Sore Throat General Chief Complaint: Upper Respiratory Infection Stated Complaint: sore throat Time Seen by Provider: 07/18/22 15:40 Source: patient, RN notes reviewed and old records reviewed Mode of arrival: ambulatory Limitations: no limitations History of Present Illness HPI Narrative: 36 year old female with complaints of 16 days of sore throat stating that initially it was very sore felt like needles in her throat, then has been mildly persistent. Patient reports that she recently quit taking Montelukast about a month ago states she started that when she had COVID and had just stayed on it for awhile. Patient reports no history of allergies, reports that post nasal drainage noted which has increased with weather changes. Patient reported that she has not had COVID vaccinations or flu shot, denies any body aches, headaches, fever, chills or sweats MD elicited complaint: sore throat and other (post nasal drainage) Onset (ago): week(s) (2 weeks) Pain scale (0-10): 2 Description of mucous: clear Treatments prior to arrival: none Related Data Home Medications Medication Instructions Recorded Confirmed No Home Medications 07/18/22 07/18/22 Allergies Allergy/AdvReac Type Severity Reaction Status Date / Time No Known Allergies Allergy Unverified 07/18/22 18:53 Review of Systems Review of Systems: CONSTITUTIONAL: Denies malaise, chills, sweats, or fever. EYES: Denies visual changes, redness, or discharge. ENT: Reports rhinorrhea, congestion,no sinus pain,no otalgia positive for lingering sore throat. CARDIOVASCULAR: Denies chest pain, palpitations, or edema. RESPIRATORY: Reports no cough.? Denies dyspnea. GASTROINTESTINAL: Denies abdominal pain, nausea, vomiting, diarrhea SKIN: Denies rash or itching. MUSCULOSKELETAL: Denies myalgia. NEUROLOGIC: Denies headache. All systems reviewed & are unremarkable except as noted in HPI and below PMFSH Surgical History Surgical History (Updated 07/19/22 @ 14:53 by Umm Lucas NP) Previous section [place] teeth extracted Family History Family History Other No problems noted. Mother Brain cancer Social History Social History (Updated 07/19/22 @ 14:53 by Umm Lucas NP) Smoking status: Never smoker Alcohol intake: unknown Substance use: never Living arrangements: with family Gender identity (if verbalized by the patient): Female Sexual Orientation (if Verbalized by the Patient): Straight or Heterosexual Spiritual care concerns: No Comments At time of signature, agree with nursing past medical, surgical, social and family history. There is no relevant family history pertinent to the presenting complaint Exam Narrative: GENERAL: Well-appearing, well-nourished, and in no acute distress. HEAD: Normocephalic EYES: PERRLA, conjunctivae clear ENT: Nares clear, turbinates edematous and erythematous, clear discharge. Mucous membranes moist. TM pearly chan with dull light reflex bilaterally; no tragal tenderness. Oropharynx erythematous without lesions. Tonsils not enlarged and without exudate, no drooling, no hoarseness, no trismus, uvula midline. NECK: Supple. No lymphadenopathy CHEST: Clear to auscultation, breath sounds equal. No wheezing, rhonchi, rales, or stridor. No respiratory distress, speaks in full sentences.SAO2 100% on room air HEART: Regular rate and rhythm. No murmur heard. SKIN: Warm, dry, no rash. NEURO: Alert and oriented x3. PSYCH: Normal mood and affect Course Course Emergency Course: Patient is aware of diagnosis, understands and agrees to treatment plan.? Anticipatory guidance given.? Patient agrees to follow-up as directed and is aware of reasons to seek care at the emergency department. Portions of this record may have been created with voice recognition software Level of Care: Express Care Visit Vital Signs
== END 2022-07-18 16:19 | disposition home or self-care (01) ==
PROVIDERS: Emergency Provider Registered Nurse
DX: J02.9 Acute pharyngitis, unspecified (principal)
CPT/HCPCS: 87081; 87880; 99213; G0463

== ENCOUNTER 2023-07-31 12:44 | Emergency (ER) | payer SELFPAY ==
--- NOTE | ~2023-07-31 | XR_ITS ---
XR chest 2V DATE: 07/31/2023 13:26 INDICATION: Cough and shortness breath for 5 days TECHNIQUE: 2 views COMPARISON: None FINDINGS: Normal heart size. No hilar or mediastinal enlargement. No pulmonary infiltrate or consolid ation, pleural effusion or pulmonary vascular congestion or pneumothorax is detected. IMPRESSION: Negative Reviewed, dictated and finalized at location B. IMPRESSION: Negative
[2023-07-31 12:49] VITALS: BP 119/38; PULSE 101; RESP 16; TEMP 36.7; O2SAT 99
--- NOTE | 2023-07-31 13:18 | ED.GENADULT ---
HPI - General Adult General Chief complaint: Upper Respiratory Infection Stated complaint: Chest Congestion Source: patient, RN notes reviewed and old records reviewed Mode of arrival: ambulatory Limitations: no limitations History of Present Illness HPI narrative: 37-year-old female presents to [facility] with complaint of productive for 5 days. Patient states cough is harsh and painful. Patient states was worried because she had pneumonia 8 years ago and severe COVID. Patient states was on asthma medications for a while but stopped taking them due to adverse effects. Related Data Allergies Allergy/AdvReac Type Severity Reaction Status Date / Time No Known Allergies Allergy Unverified 07/31/23 13:19 Review of Systems Constitutional: Constitutional: Reports no additional constitutional complaints, Denies body ache(s), Denies chills, Denies fatigue, Denies fever(s) and Denies headache(s) Eyes: Eyes: Reports no additional eye complaints and Denies blurry vision ENT: Reports system reviewed and no additional complaints, except as documented, Denies vertigo, Denies dizziness, Denies ear discharge, Denies otalgia, Denies facial pain, Denies headache(s), Denies nasal congestion, Denies nasal discharge, Denies sinus pain, Denies sinus pressure and Denies sore throat Cardiovascular: Cardiovascular: Reports no additional cardiovascular complaints, Denies chest pain, Denies chest pain at rest, Denies rapid heart rate and Denies dyspnea Respiratory: Respiratory: Reports no additional respiratory complaints, Reports chest congestion, Reports cough, Denies pain on inspiration, Denies pain with cough and Denies dyspnea Gastrointestinal: Gastrointestinal: Denies abdominal pain, Denies diarrhea, Denies nausea and Denies vomiting Integumentary/Breasts: Skin/Breast: Denies rash Neurologic: Reports system reviewed and no additional complaints, except as documented, Denies vertigo, Denies dizziness and Denies headache(s) Endocrine: Endocrine: Denies fatigue PMFSH Surgical History Surgical History Previous section [place] teeth extracted Family History Family History Other No problems noted. Mother Brain cancer Social History Social History Smoking status: Never smoker Alcohol intake: unknown Substance use: never Living arrangements: with family Gender identity (if verbalized by the patient): Female Sexual Orientation (if Verbalized by the Patient): Straight or Heterosexual Spiritual care concerns: No Comments At the time of my signature, I reviewed and agree with the nursing past medical, surgical, social, and family history. There is no relevant family history pertinent to the patient complaint. Exam Const: General: cooperative, healthy appearing, no acute distress and well nourished Nutritional Appearance: well nourished Orientation/consciousness: patient oriented x3 Limitations: no limitations HENMT: Head: normal to inspection and normocephalic Ears: external ears normal, EAC's normal, mastoids normal and TM abnormal wth effusion serous bilateral Face/Nose/Sinus: Normal nasal mucous membranes and turbinates present and normal facial exam Face and sinus: normal facial exam Mouth: Yes Normal oral and palatal mucosa present, Yes oropharynx normal and Yes moist mucous membranes Throat: tonsils normal, uvula midline and no uvular edema Eyes: General: appearance normal, both eyes and all related structures Sclera: sclerae normal Pupils: Equal, round and reactive pupils present Resp: Effort & Inspection: normal respiratory effort, able to speak in complete sentences, no audible wheezes, no cough, no respiratory distress and no retractions Auscultation: clear to auscultation bilaterally, no crackles, no rales, no rhonchi and no wheeze
== END 2023-07-31 13:36 | disposition home or self-care (01) ==
PROVIDERS: Emergency Provider Registered Nurse
DX: J40 Bronchitis, not specified as acute or chronic (principal); Z86.16 Personal history of COVID-19
CPT/HCPCS: 71046; 99213; G0463